=== PATIENT | female | born 1990 | race African-American/Black ===

== ENCOUNTER 2024-05-19 13:33 | Inpatient (IN) | payer MEDICAID, OTHER ==
[~2024-05-19] VITALS: Ht 160 cm; Wt 105.5 kg
[2024-05-19] MEDS: ONDANSETRON HCL 4 MG/2 ML VIAL IV ONE (14:01)
[2024-05-19 14:07] VITALS: PULSE 88; RESP 16; O2SAT 97
[2024-05-19] MEDS: SODIUM CHLORIDE 0.9% 1,000 ML IV ONE (14:09)
[2024-05-19 14:13] LABS: Basophils # (auto) 0 10 ^3/uL (0-0.2); Basophils % (auto) 0.2 % (0.0-2.0); Eosinophils # (auto) 0 10 ^3/uL (0-0.8); Eosinophils % (auto) 0.1 % (0.0-7.0); Hemoglobin 12.3 g/dL (12.2-16.2); Lymphocytes # (auto) 0.8 10 ^3/uL (0.4-5.4); Lymphocytes % (auto) 6.3 % (10.0-50.0); Mean Corpuscular Hemoglobin 32.3 pg (28.0-32.0); Mean Corpuscular Hgb Conc. 33.4 g/dL (32.0-36.0); Mean Corpuscular Volume 96.8 fL (80.0-100.0); Monocytes # (auto) 0.3 10 ^3/uL (0-1.3); Monocytes % (auto) 2.7 % (0.0-12.0); Neutrophils # (auto) 10.8 10 ^3/uL (1.6-8.6); Neutrophils % (auto) 90.7 % (37.0-80.0); Red Blood Cells 3.82 10^6/uL (4.0-5.20)
[2024-05-19 14:19] LABS: Chloride 104 mmol/L (98-107); Potassium 3.3 mmol/L (3.5-5.1)
[2024-05-19 14:20] LABS: Anion Gap 13 (5-15); Carbon Dioxide 19 mmol/L (20-30); Sodium 136 mmol/L (136-145)
[2024-05-19 14:21] LABS: Calcium 9.2 mg/dL (8.7-10.4)
[2024-05-19 14:26] LABS: BUN/Creatinine Ratio 7.4 (10.0-20.0); Blood Urea Nitrogen < 5 mg/dL (9-23); Glucose 105 mg/dL (74-106)
[2024-05-19] MEDS: PROCHLORPERAZINE EDISYLATE 5 MG/ML 2ML VIAL IV ONE (15:19)
[2024-05-19] MEDS: levoFLOXacin 750MG 150 ML IV ONE (15:20)
[2024-05-19 15:25] LABS: Urine Bacteria None Seen /hpf (None Seen)
[2024-05-19 15:42] LABS: Urine Blood 1+ /uL (Negative); Urine Clarity Clear (Clear); Urine Color Light-Yellow (Yellow); Urine Hyaline Cast FEW /lpf (0 - 2); Urine Mucus FEW (None Seen); Urine Protein, UAD 1+ (Negative); Urine Specific Gravity 1.024 (1.001-1.035); Urine Urobilinogen Normal (Negative); Urine WBC 3 /hpf (0 - 5)
[2024-05-19] MEDS ORDERED: HYDROcodone-ACET 5/325MG TAB PO PRN (16:00)
[2024-05-19] MEDS: POTASSIUM EFFERVESENT TAB 25 MEQ PO ONE (16:18)
[2024-05-19 20:12] VITALS: PULSE 52; RESP 16; O2SAT 97
[2024-05-20] MEDS: ONDANSETRON HCL 4 MG/2 ML VIAL IV PRN (00:33)
[2024-05-20] MEDS: MAALOX PLUS or MAALOX 30 ML PO ONE (00:40)
[2024-05-20] MEDS: LIDOCAINE VISCOUS 2% 15ML UD PO ONE (00:40)
[2024-05-20] MEDS: PANTOPRAZOLE 40 MG/10 ML VIAL INJ IV ONE ×2 (00:40→14:58)
[2024-05-20 05:05] LABS: Anion Gap 10 (5-15); Carbon Dioxide 23 mmol/L (20-30); Chloride 106 mmol/L (98-107); Potassium 3.1 mmol/L (3.5-5.1); Sodium 139 mmol/L (136-145)
[2024-05-20 05:11] LABS: Glucose 88 mg/dL (74-106)
[2024-05-20 05:28] LABS: BUN/Creatinine Ratio 7.2 (10.0-20.0); Blood Urea Nitrogen < 5 mg/dL (9-23)
[2024-05-20 07:57] VITALS: PULSE 55; RESP 16; O2SAT 96
[2024-05-20] MEDS: PANTOPRAZOLE 40 MG/10 ML VIAL INJ IV SCH (09:57)
[2024-05-20] MEDS: POTASSIUM EFFERVESENT TAB 25 MEQ PO ONE (11:37)
[2024-05-20 14:33] LABS: Basophils # (auto) 0 10 ^3/uL (0-0.2); Basophils % (auto) 0.2 % (0.0-2.0); Eosinophils # (auto) 0 10 ^3/uL (0-0.8); Eosinophils % (auto) 0.1 % (0.0-7.0); Hematocrit 38.3 % (36.0-46.0); Hemoglobin 12.8 g/dL (12.2-16.2); Lymphocytes # (auto) 1.8 10 ^3/uL (0.4-5.4); Lymphocytes % (auto) 15.7 % (10.0-50.0); Mean Corpuscular Hemoglobin 32.2 pg (28.0-32.0); Mean Corpuscular Hgb Conc. 33.3 g/dL (32.0-36.0); Mean Corpuscular Volume 96.8 fL (80.0-100.0); Monocytes # (auto) 0.8 10 ^3/uL (0-1.3); Monocytes % (auto) 6.9 % (0.0-12.0); Neutrophils % (auto) 77.1 % (37.0-80.0); Red Blood Cells 3.96 10^6/uL (4.0-5.20); Red Cell Distribution Width 15.7 % (11.8-14.3); White Blood Cell 11.6 10^3/uL (4.4-10.8)
[2024-05-20] MEDS: SODIUM CHLORIDE 0.9% 1,000 ML IV SCH (14:50)
[2024-05-20 15:45] VITALS: PULSE 49; RESP 16; O2SAT 97
[2024-05-20] MEDS ORDERED: MORPHINE SULFATE INJ 2 MG/ml SYRG IV ONE (16:30)
[2024-05-20] MEDS: LORazepam 2MG/ML-1ML VIAL IV ONE (16:43)
[2024-05-20 17:50] VITALS: BP 120/76; PULSE 50; RESP 17; TEMP 97.6; O2SAT 97
[2024-05-20 18:35] VITALS: BP 120/76; PULSE 50; RESP 17; TEMP 97.6; O2SAT 97
[2024-05-20] MEDS: SOD CHL 0.9%/ KCL 20MEQ 1,000 ML IV ONE (18:35)
[2024-05-20 20:00] VITALS: PULSE 52
[2024-05-20 21:00] VITALS: BP_SYST 116; BP_SYST 138; BP_DIAS 66; BP_DIAS 88; PULSE 108; PULSE 53; RESP 17; RESP 18; TEMP 98; TEMP 98.1; O2SAT 95; O2SAT 99
[2024-05-21] VITALS (7 sets, daily range): BP systolic 111–125; BP diastolic 68–78; PULSE 49–110; RESP 17–63; TEMP 36.6; O2SAT 91–100
[2024-05-21] MEDS: ACETAMINOPHEN 325 MG TAB PO PRN (05:13)
[2024-05-21 06:08] LABS: Basophils # (auto) 0 10 ^3/uL (0-0.2); Basophils % (auto) 0.3 % (0.0-2.0); Eosinophils # (auto) 0 10 ^3/uL (0-0.8); Eosinophils % (auto) 0.2 % (0.0-7.0); Hematocrit 34.1 % (36.0-46.0); Hemoglobin 11.6 g/dL (12.2-16.2); Lymphocytes # (auto) 1.7 10 ^3/uL (0.4-5.4); Lymphocytes % (auto) 20.3 % (10.0-50.0); Mean Corpuscular Hgb Conc. 34.1 g/dL (32.0-36.0); Mean Corpuscular Volume 96.7 fL (80.0-100.0); Monocytes # (auto) 0.6 10 ^3/uL (0-1.3); Monocytes % (auto) 7.5 % (0.0-12.0); Neutrophils # (auto) 6.2 10 ^3/uL (1.6-8.6); Neutrophils % (auto) 71.7 % (37.0-80.0); Nucleated Red Blood Cells % 0.1 %; Red Blood Cells 3.52 10^6/uL (4.0-5.20); Red Cell Distribution Width 15.7 % (11.8-14.3); White Blood Cell 8.6 10^3/uL (4.4-10.8)
[2024-05-21 06:15] LABS: Chloride 105 mmol/L (98-107); Potassium 2.9 mmol/L (3.5-5.1); Sodium 139 mmol/L (136-145)
[2024-05-21 06:16] LABS: Anion Gap 6 (5-15); Carbon Dioxide 28 mmol/L (20-30)
[2024-05-21 06:17] LABS: Calcium 8.6 mg/dL (8.7-10.4)
[2024-05-21 06:21] LABS: Glucose 76 mg/dL (74-106)
[2024-05-21 06:22] LABS: LDL Cholesterol 54 mg/dL (< 100); Magnesium 1.7 mg/dL (1.6-2.6); Triglycerides 66 mg/dL (< 150)
[2024-05-21 06:23] LABS: Cholesterol 102 mg/dL (< 200); HDL Cholesterol 29 mg/dL (40-59)
[2024-05-21 06:34] LABS: Beta HCG, Quantitative 0.6 mIU/mL (1.5-4.2)
[2024-05-21 06:35] LABS: BUN/Creatinine Ratio 6.6 (10.0-20.0); Blood Urea Nitrogen < 5 mg/dL (9-23)
[2024-05-21 06:38] LABS: Thyroid Stimulating Hormone 1.83 uIU/mL (0.358-3.74)
[2024-05-21] MEDS: POTASSIUM CHL 20 Meq TABLET PO ONE (08:43)
[2024-05-21] MEDS: PANTOPRAZOLE 40 MG/10 ML VIAL INJ IV SCH (08:43)
[2024-05-21] MEDS ORDERED: PANTOPRAZOLE 40 MG/10 ML VIAL INJ IV SCH ×2 (11:00→22:00)
[2024-05-21 11:25] LABS: Albumin 3.3 g/dL (3.2-4.8); Bilirubin, Direct 0.2 mg/dL (<0.3)
[2024-05-21 11:26] LABS: Bilirubin, Total 0.5 mg/dL (0.2-1.0); Total Protein 5.7 g/dL (5.7-8.2)
[2024-05-21] MEDS: SOD CHL 0.9%/ KCL 20MEQ 1,000 ML IV ONE (12:15)
[2024-05-21] MEDS: Ensure HIGH Protein Chocolate 8oz Bottle PO SCH (18:00)
== END 2024-05-21 19:15 | disposition home or self-care (01) | DRG 241 ==
LOC: ER 13:42 → OVERFLOW 15:56 → WEST WING 05-20 17:53 → TELE-WESTW 05-21 04:36
PROVIDERS: ADMIT Nurse Practitioner; ATTEND Nurse Practitioner
DX: K29.00 Acute gastritis without bleeding (principal); R65.10 Systemic inflammatory response syndrome (SIRS) of non-infectious origin without acute organ dysfunction; E66.9 Obesity, unspecified; T83.32XA Displacement of intrauterine contraceptive device, initial encounter; E86.0 Dehydration; E87.6 Hypokalemia; K21.9 Gastro-esophageal reflux disease without esophagitis; F12.90 Cannabis use, unspecified, uncomplicated; Y83.8 Other surgical procedures as the cause of abnormal reaction of the patient, or of later complication, without mention of misadventure at the time of the procedure; Y76.2 Prosthetic and other implants, materials and accessory obstetric and gynecological devices associated with adverse incidents; R00.1 Bradycardia, unspecified; I49.1 Atrial premature depolarization; Z88.0 Allergy status to penicillin; Z79.899 Other long term (current) drug therapy; Y92.89 Other specified places as the place of occurrence of the external cause; Z68.41 Body mass index [BMI] 40.0-44.9, adult
CPT/HCPCS: 36415; 74176; 80048; 80061; 80076; 81001; 83036; 83735; 84443; 84484; 84702; 85025; 93005; 93306; G0378; J1956; J2405; J2470